=== PATIENT | male | born 1960 | race Caucasian/White ===

== ENCOUNTER 2018-04-05 13:21 | Emergency (ER) | payer OTHER ==
[~2018-04-05] VITALS: Ht 175.2 cm; Wt 77.1 kg
--- NOTE | ~2018-04-05 | EKG ---
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
[~2018-04-05 13:21] MED LIST: AMLODIPINE5 MG PO; ANTIVERT/2525 MG PO; CHOLESTEROL; MEDROL DOSEPAK4 MG PO; VICODIN ES 7501 TAB PO
[2018-04-05 14:35] LABS: BASO % 0.3 % (0.0-1.0); EOS % 0.3 % (1.0-4.0); HEMATOCRIT 40.9 % (42.0-52.0); HEMOGLOBIN 12.7 g/dl (14.0-18.0); LYMPH # 0.4 10*3/uL (1.3-4.4); MEAN CELL VOLUME 98.3 fl (80.0-94.0); MEAN CORPUSCULAR HGB 30.5 pg (27.0-31.0); MEAN CORPUSCULAR HGB CONC 31.1 g/dl (33.0-37.0); MEAN PLATELET VOLUME 9.5 fl (9.6-12.3); MONO # 0.6 10*3/uL (0.1-1.0); NEUT # 7.6 10*3/uL (2.3-7.9); NEUT % 87.2 % (47.0-73.0); PLATELET COUNT AUTOMATED 203 10*3/uL (130-400); RED BLOOD COUNT 4.16 10*6/uL (4.50-5.90); RED CELL DISTRI WIDTH 13.1 % (0-14.5); WHITE BLOOD COUNT 8.8 10*3/uL (4.8-10.8)
[2018-04-05 14:50] LABS: ALBUMIN 3.5 gm/dl (3.1-4.5); ALKALINE PHOSPHATASE 47 U/L (45-117); BUN 14 mg/dl (7-24); CHLORIDE 100 mmol/L (98-107); CREATININE 1.15 mg/dL (0.70-1.30); POTASSIUM 3.8 mmol/L (3.5-5.1); SGOT/AST 14 IU/L (3-35); SGPT/ALT 31 U/L (12-78); SODIUM 137 mmol/L (136-145); TOTAL PROTEIN 7.1 gm/dL (6.4-8.2)
[2018-04-05] MEDS ORDERED: VIBRAMYCIN100 MG PO (15:53)
== END 2018-04-05 15:57 | disposition home or self-care (01) ==
LOC: ED 13:21
PROVIDERS: Emergency Medicine
DX: J40 Bronchitis, not specified as acute or chronic (principal); R55 Syncope and collapse; F17.200 Nicotine dependence, unspecified, uncomplicated; Z88.0 Allergy status to penicillin; Z79.899 Other long term (current) drug therapy

== ENCOUNTER → 2019-04-01 | Outpatient (CLI) | payer OTHER ==
[~2019-04-01] MED LIST changes: +VIBRAMYCIN100 MG PO
[2019-04-01 10:26] LABS: BASO % 0.6 % (0.0-1.0); EOS # 0.1 10*3/uL (0.0-0.4); EOS % 1.8 % (1.0-4.0); HEMATOCRIT 44.3 % (42.0-52.0); HEMOGLOBIN 13.8 g/dl (14.0-18.0); LYMPH % 14.9 % (27.0-41.0); MEAN CELL VOLUME 97.8 fl (80.0-94.0); MEAN CORPUSCULAR HGB 30.5 pg (27.0-31.0); MEAN CORPUSCULAR HGB CONC 31.2 g/dl (33.0-37.0); MEAN PLATELET VOLUME 9.7 fl (9.6-12.3); MONO # 0.4 10*3/uL (0.1-1.0); MONO % 5.6 % (3.0-9.0); NEUT # 5.2 10*3/uL (2.3-7.9); PLATELET COUNT AUTOMATED 285 10*3/uL (130-400); RED BLOOD COUNT 4.53 10*6/uL (4.50-5.90); RED CELL DISTRI WIDTH 13.5 % (0-14.5); WHITE BLOOD COUNT 6.8 10*3/uL (4.8-10.8)
[2019-04-01 10:57] LABS: ALBUMIN 3.9 gm/dl (3.1-4.5); BUN 19 mg/dl (7-24); CHOLESTEROL 200 mg/dL (<200); CREATININE 1.25 mg/dL (0.70-1.30); SGOT/AST 27 IU/L (3-35); SGPT/ALT 40 U/L (12-78); T3 UPTAKE 31 % (31-39); THYROXINE (T4) TOTAL 9.1 ug/dl (4.5-12.1); TOTAL PROTEIN 7.3 gm/dL (6.4-8.2); TRIGLYCERIDES 122 mg/dl (<150); VLDL CHOLESTEROL 24 mg/dL (6-40)
[2019-04-01 11:03] LABS: ALKALINE PHOSPHATASE 43 U/L (45-117); CHLORIDE 106 mmol/L (98-107); HDL CHOLESTEROL 42 mg/dl (40-60); LDL CHOLESTEROL 134 mg/dL (9-159); POTASSIUM 3.9 mmol/L (3.5-5.1); SODIUM 137 mmol/L (136-145)
[2019-04-01 11:15] LABS: VITAMIN D, 25-HYDROXY 33.4 ng/mL (30-100)
== END | disposition home or self-care (01) ==
LOC: LAB 09:48
PROVIDERS: Internal Medicine
DX: Z12.5 Encounter for screening for malignant neoplasm of prostate (principal); I10 Essential (primary) hypertension; E78.2 Mixed hyperlipidemia; E03.9 Hypothyroidism, unspecified; D51.0 Vitamin B12 deficiency anemia due to intrinsic factor deficiency; E55.9 Vitamin D deficiency, unspecified; I34.1 Nonrheumatic mitral (valve) prolapse; R53.82 Chronic fatigue, unspecified

== ENCOUNTER 2019-07-04 10:58 | Emergency (ER) | payer OTHER ==
[~2019-07-04] VITALS: Ht 167.6 cm; Wt 81.6 kg
[2019-07-04 12:22] LABS: HEMATOCRIT 39.6 % (42.0-52.0); HEMOGLOBIN 12.5 g/dl (14.0-18.0); MEAN CELL VOLUME 95.4 fl (80.0-94.0); MEAN CORPUSCULAR HGB 30.1 pg (27.0-31.0); MEAN CORPUSCULAR HGB CONC 31.6 g/dl (33.0-37.0); MEAN PLATELET VOLUME 9.5 fl (9.6-12.3); PLATELET COUNT AUTOMATED 167 10*3/uL (130-400); RED BLOOD COUNT 4.15 10*6/uL (4.50-5.90); RED CELL DISTRI WIDTH 14.1 % (0-14.5)
[2019-07-04 12:30] LABS: ACT PARTIAL THROMBO TIME 28.8 SECONDS (20.0-32.1)
[2019-07-04 12:37] LABS: ALBUMIN 3.4 gm/dl (3.1-4.5); ALKALINE PHOSPHATASE 41 U/L (45-117); BUN 17 mg/dl (7-24); CHLORIDE 104 mmol/L (98-107); CREATININE 1.41 mg/dL (0.70-1.30); POTASSIUM 3.7 mmol/L (3.5-5.1); SGOT/AST 27 IU/L (3-35); SGPT/ALT 34 U/L (12-78); SODIUM 136 mmol/L (136-145); TOTAL PROTEIN 6.9 gm/dL (6.4-8.2)
[2019-07-04 12:39] LABS: TROPONIN I < 0.015 ng/ml (<0.045)
[2019-07-04 12:40] LABS: ATYPICAL LYMPHS 3 % (0-0); PLATELET SUFFICIENCY NORMAL (NORMAL); TOTAL CELLS COUNTED 100 #CELLS
[2019-07-04 12:50] LABS: BACTERIA 2+; BILIRUBIN 1+ (NEGATIVE); BLOOD 1+ (NEGATIVE); CLARITY SL CLOUDY (CLEAR); COLOR YELLOW (YELLOW); EPITHELIAL CELLS 0-2; GLUCOSE NEGATIVE (NEGATIVE); KETONE NEGATIVE (NEGATIVE); LEUKO ESTERASE NEGATIVE (NEGATIVE); MUCOUS 1+; NITRITE NEGATIVE (NEGATIVE); SPECIFIC GRAVITY 1.015 (1.005-1.030); UROBILINOGEN 0.2 E.U./dl (0.2-1.0); WBC 0-2 wbc/hpf (0-5)
[2019-07-04] MEDS ORDERED: ZOFRAN4 MG PO (14:45)
== END 2019-07-04 14:58 | disposition home or self-care (01) ==
LOC: ED 10:58
PROVIDERS: Emergency Medicine
DX: B34.9 Viral infection, unspecified (principal); R42 Dizziness and giddiness; R07.81 Pleurodynia; R10.9 Unspecified abdominal pain; R51 Headache; R11.0 Nausea; R79.1 Abnormal coagulation profile; I10 Essential (primary) hypertension; Z88.0 Allergy status to penicillin; Z79.899 Other long term (current) drug therapy

== ENCOUNTER 2019-07-10 15:22 | Inpatient (IN) | payer OTHER ==
[~2019-07-10] VITALS: Ht 170.1 cm; Wt 81.2 kg
[~2019-07-10 15:22] MED LIST changes: +ZOFRAN4 MG PO
[2019-07-10 15:29] VITALS: BP 81/51
[2019-07-10 16:04] LABS: HEMATOCRIT 34.1 % (42.0-52.0); HEMOGLOBIN 10.9 g/dl (14.0-18.0); MEAN CELL VOLUME 92.2 fl (80.0-94.0); MEAN CORPUSCULAR HGB 29.5 pg (27.0-31.0); PLATELET COUNT AUTOMATED 253 10*3/uL (130-400); RED CELL DISTRI WIDTH 14.6 % (0-14.5); WHITE BLOOD COUNT 5.3 10*3/uL (4.8-10.8)
[2019-07-10 16:19] LABS: ACT PARTIAL THROMBO TIME 22.1 SECONDS (20.0-32.1)
[2019-07-10 16:23] LABS: ALBUMIN 3.2 gm/dl (3.1-4.5); ALKALINE PHOSPHATASE 77 U/L (45-117); BUN 20 mg/dl (7-24); CHLORIDE 99 mmol/L (98-107); CREATININE 1.45 mg/dL (0.70-1.30); LIPASE 155 U/L (73-393); POTASSIUM 3.9 mmol/L (3.5-5.1); SGOT/AST 48 IU/L (3-35); SGPT/ALT 73 U/L (12-78); SODIUM 133 mmol/L (136-145); TOTAL PROTEIN 6.8 gm/dL (6.4-8.2)
[2019-07-10 16:26] LABS: ATYPICAL LYMPHS 5 % (0-0); PLATELET SUFFICIENCY NORMAL (NORMAL); TOTAL CELLS COUNTED 100 #CELLS
[2019-07-10 16:27] LABS: BURR CELLS FEW; TROPONIN I < 0.015 ng/ml (<0.045)
[2019-07-10 17:30] VITALS: BP 105/57
[2019-07-10 18:01] VITALS: BP 105/60
[2019-07-10 18:47] VITALS: BP 107/80
[2019-07-10] MEDS ORDERED: ZESTORETIC 10-1 EACH PO (18:51)
[2019-07-10] MEDS ORDERED: PRAVASTATIN SOD10 MG PO (18:52)
[2019-07-10 20:00] VITALS: BP 107/58
[2019-07-11] VITALS: BP 107/62
[2019-07-11 03:24] LABS: BILIRUBIN NEGATIVE (NEGATIVE); BLOOD NEGATIVE (NEGATIVE); CLARITY CLEAR (CLEAR); COLOR YELLOW (YELLOW); GLUCOSE NEGATIVE (NEGATIVE); KETONE NEGATIVE (NEGATIVE); PH 6.5 (5.0-9.0); SPECIFIC GRAVITY 1.015 (1.005-1.030)
[2019-07-11 03:25] LABS: LEUKO ESTERASE NEGATIVE (NEGATIVE); NITRITE NEGATIVE (NEGATIVE); UROBILINOGEN 0.2 E.U./dl (0.2-1.0)
[2019-07-11 03:38] LABS: BACTERIA TRACE; MUCOUS TRACE; RBC 0-2 rbc/hpf (0-2)
[2019-07-11 06:16] LABS: HEMATOCRIT 28.9 % (42.0-52.0); HEMOGLOBIN 9.1 g/dl (14.0-18.0); MEAN CELL VOLUME 93.8 fl (80.0-94.0); MEAN CORPUSCULAR HGB 29.5 pg (27.0-31.0); MEAN CORPUSCULAR HGB CONC 31.5 g/dl (33.0-37.0); MEAN PLATELET VOLUME 9.6 fl (9.6-12.3); PLATELET COUNT AUTOMATED 237 10*3/uL (130-400); RED BLOOD COUNT 3.08 10*6/uL (4.50-5.90); RED CELL DISTRI WIDTH 14.8 % (0-14.5); WHITE BLOOD COUNT 5.1 10*3/uL (4.8-10.8)
[2019-07-11 06:33] LABS: ALBUMIN 2.7 gm/dl (3.1-4.5); ALKALINE PHOSPHATASE 85 U/L (45-117); BUN 20 mg/dl (7-24); CHLORIDE 104 mmol/L (98-107); CHOLESTEROL 109 mg/dL (<200); CREATININE 1.39 mg/dL (0.70-1.30); HDL CHOLESTEROL 22 mg/dl (40-60); IRON 34 ug/dL (65-175); LDL CHOLESTEROL 63 mg/dL (9-159); PHOSPHOROUS 3.5 mg/dL (2.5-4.9); POTASSIUM 3.7 mmol/L (3.5-5.1); SGOT/AST 51 IU/L (3-35); SGPT/ALT 76 U/L (12-78); SODIUM 136 mmol/L (136-145); TOTAL IRON BINDING CAPACITY 173 ug/dl (250-450); TOTAL PROTEIN 5.7 gm/dL (6.4-8.2); TRIGLYCERIDES 118 mg/dl (<150); VLDL CHOLESTEROL 24 mg/dL (6-40)
[2019-07-11 06:53] LABS: ATYPICAL LYMPHS 14 % (0-0); BASOPHILS 1 % (0-1); PLATELET SUFFICIENCY NORMAL (NORMAL); POLYCHROMASIA SLIGHT; TOTAL CELLS COUNTED 100 #CELLS
[2019-07-11 06:54] LABS: OVALOCYTES FEW
[2019-07-11 08:08] LABS: FERRITIN 584.4 ng/mL (22.0-322.0); VITAMIN D, 25-HYDROXY 28.2 ng/mL (30-100)
[2019-07-11 12:00] VITALS: BP 97/81
[2019-07-11 16:00] VITALS: BP 128/83
[2019-07-11 20:00] VITALS: BP 119/77
[2019-07-12] VITALS: BP 128/78
[2019-07-12 08:00] VITALS: BP 126/78
[2019-07-12] MEDS ORDERED: TAMIFLU 75MG CA75 MG PO (08:44)
== END 2019-07-12 10:02 | disposition home or self-care (01) | DRG 640 ==
LOC: ED 15:22 → EDHOLD 17:44 → 4E 17:44
PROVIDERS: Internal Medicine; Physician Assistant; ADMIT Internal Medicine
DX: E86.0 Dehydration (principal); N17.0 Acute kidney failure with tubular necrosis; E43 Unspecified severe protein-calorie malnutrition; B34.9 Viral infection, unspecified; M79.604 Pain in right leg; M79.605 Pain in left leg; I95.9 Hypotension, unspecified; I10 Essential (primary) hypertension; E78.00 Pure hypercholesterolemia, unspecified; E55.9 Vitamin D deficiency, unspecified; Z68.28 Body mass index [BMI] 28.0-28.9, adult; Z88.0 Allergy status to penicillin; Z79.899 Other long term (current) drug therapy

== ENCOUNTER 2019-07-16 02:17 | Inpatient (IN) | payer OTHER ==
[~2019-07-16] VITALS: Ht 182.9 cm; Wt 81.3 kg
[2019-07-16] VITALS (8 sets, daily range): BP systolic 114–150; BP diastolic 68–84
[~2019-07-16 02:17] MED LIST changes: +PRAVASTATIN SOD10 MG PO; +TAMIFLU 75MG CA75 MG PO; +ZESTORETIC 10-1 EACH PO
[2019-07-16 03:38] LABS: HEMATOCRIT 31.7 % (42.0-52.0); HEMOGLOBIN 9.9 g/dl (14.0-18.0); MEAN CELL VOLUME 93.5 fl (80.0-94.0); MEAN CORPUSCULAR HGB 29.2 pg (27.0-31.0); MEAN CORPUSCULAR HGB CONC 31.2 g/dl (33.0-37.0); MEAN PLATELET VOLUME 8.9 fl (9.6-12.3); PLATELET COUNT AUTOMATED 271 10*3/uL (130-400); RED BLOOD COUNT 3.39 10*6/uL (4.50-5.90); RED CELL DISTRI WIDTH 15.3 % (0-14.5)
[2019-07-16 03:55] LABS: ALBUMIN 2.9 gm/dl (3.1-4.5); ALKALINE PHOSPHATASE 177 U/L (45-117); BUN 12 mg/dl (7-24); CHLORIDE 102 mmol/L (98-107); CREATININE 1.24 mg/dL (0.70-1.30); LIPASE 107 U/L (73-393); POTASSIUM 3.5 mmol/L (3.5-5.1); SGOT/AST 149 IU/L (3-35); SGPT/ALT 249 U/L (12-78); SODIUM 139 mmol/L (136-145); TOTAL PROTEIN 6.2 gm/dL (6.4-8.2)
[2019-07-16 03:58] LABS: ATYPICAL LYMPHS 31 % (0-0); MICROCYTOSIS SLIGHT; TOTAL CELLS COUNTED 100 #CELLS
[2019-07-16 03:59] LABS: PLATELET SUFFICIENCY NORMAL (NORMAL)
--- NOTE | 2019-07-16 05:32 | NUR ---
PT STATES HIS PAIN HAS DECREASED AFTER GIVEN MEDICATION. RESTING IN BED. IN NO ACUTE DISTRESS
[2019-07-16 06:28] LABS: BILIRUBIN NEGATIVE (NEGATIVE); BLOOD NEGATIVE (NEGATIVE); CLARITY SL CLOUDY (CLEAR); COLOR STRAW (YELLOW); GLUCOSE NEGATIVE (NEGATIVE); KETONE NEGATIVE (NEGATIVE); LEUKO ESTERASE NEGATIVE (NEGATIVE); NITRITE NEGATIVE (NEGATIVE); SPECIFIC GRAVITY 1.015 (1.005-1.030); UROBILINOGEN 0.2 E.U./dl (0.2-1.0)
[2019-07-16 06:30] LABS: EPITHELIAL CELLS 0-2
--- NOTE | 2019-07-16 08:30 | NUR ---
Pt states his pain is doing ok at this time and waiting on room upstairs.
--- NOTE | 2019-07-16 09:01 | NUR ---
Called report and nurse stated she needed some time prior to admisson.
[2019-07-16] MEDS ORDERED: ZESTORETIC 10-1 EACH PO (09:38)
--- NOTE | 2019-07-16 10:11 | NUR ---
Time: 914 A 59 year old MALE admitted to 5E under services of NUNU BURGOS DO. Pt. arrived via stretcher from ER. Chief complaint: LEG PAIN X 6 MONTHS. ALETA GREY
--- NOTE | 2019-07-16 19:15 | NUR ---
PT RESTING IN REJI. NO COMPLAINTS AT THIS TIME. ASSESSMENT COMPLETE. RESPIRATIONS EASY AND REGULAR. CALL LIGHT WITHIN REACH. WILL CONTINUE TO MONITOR.
--- NOTE | 2019-07-16 23:12 | NUR ---
PT REQUESTING SOMETHING TO HELP HIM SLEEP. MEDICATED WITH PRN RESTORIL ORDERED. WILL CHECK EFFECTIVENESS. CALL LIGHT WITHIN REACH.
[2019-07-16 23:25] LABS: URINE AMPHETAMINES < 1000 (1000ng/ml); URINE BARBITURATES < 200 (200ng/ml); URINE BENZODIAZEPINES < 200 (200ng/ml); URINE CANNABINOIDS (THC) < 50 (50ng/ml); URINE COCAINE < 300 (300ng/ml); URINE METHADONE < 300 (300ng/ml); URINE OPIATES > 300 (300ng/ml)
[2019-07-16 23:34] LABS: URINE PHENCYCLIDINE < 25 (25ng/ml)
--- NOTE | 2019-07-16 23:56 | NUR ---
INFORMED PT REQUESTING SOMETHING FOR CALF PAIN. STATES "I WILL PUT SOMETHING IN."
[2019-07-17] VITALS: BP 129/71
--- NOTE | 2019-07-17 00:03 | NUR ---
ONE TIME TORADOL IV GIVEN ORDERED FOR CALF PAIN RATED A 9/10. WILL CHECK EFFECTIVENESS. CALL LIGHT WITHIN REACH.
--- NOTE | 2019-07-17 00:30 | NUR ---
PT STATES PAIN MED HELPED A LITTLE. WILL CONTINUE TO MONITOR.
--- NOTE | 2019-07-17 00:45 | NUR ---
24 HR chart check completed.
--- NOTE | 2019-07-17 02:32 | NUR ---
PT STILL CO CALF PAIN RATED A 10/10 NOTIFIED . NEW ORDERS RECEIVED. MEDICATED PT WITH ONE TIME NORCO ORDERED. WILL CHECK EFFECTIVENESS. CALL LIGHT WITHIN REACH. WILL CONTINUE TO MONITOR.
--- NOTE | 2019-07-17 03:15 | NUR ---
PT SLEEPING. PAIN MED SEEMS TO BE EFFECTIVE. CALL LIGHT WITHIN REACH. WILL CONTINUE TO MONITOR.
[2019-07-17 06:16] LABS: HEMATOCRIT 32.1 % (42.0-52.0); HEMOGLOBIN 10.1 g/dl (14.0-18.0); MEAN CELL VOLUME 93.3 fl (80.0-94.0); MEAN CORPUSCULAR HGB 29.4 pg (27.0-31.0); MEAN CORPUSCULAR HGB CONC 31.5 g/dl (33.0-37.0); MEAN PLATELET VOLUME 9.2 fl (9.6-12.3); PLATELET COUNT AUTOMATED 251 10*3/uL (130-400); RED BLOOD COUNT 3.44 10*6/uL (4.50-5.90); RED CELL DISTRI WIDTH 15.4 % (0-14.5); WHITE BLOOD COUNT 7.9 10*3/uL (4.8-10.8)
[2019-07-17 06:31] LABS: ALBUMIN 2.8 gm/dl (3.1-4.5); ALKALINE PHOSPHATASE 235 U/L (45-117); BUN 17 mg/dl (7-24); CHLORIDE 97 mmol/L (98-107); CREATININE 1.37 mg/dL (0.70-1.30); PHOSPHOROUS 4.6 mg/dL (2.5-4.9); POTASSIUM 4.1 mmol/L (3.5-5.1); SGOT/AST 142 IU/L (3-35); SGPT/ALT 265 U/L (12-78); SODIUM 135 mmol/L (136-145); TOTAL PROTEIN 6.3 gm/dL (6.4-8.2)
[2019-07-17 06:43] LABS: ATYPICAL LYMPHS 18 % (0-0); TOTAL CELLS COUNTED 100 #CELLS
[2019-07-17 06:44] LABS: OVALOCYTES FEW; PLATELET SUFFICIENCY NORMAL (NORMAL); POLYCHROMASIA SLIGHT
--- NOTE | 2019-07-17 07:30 | NUR ---
DR JAVIER HERE TO ASSESS PATIENT AND DISCUSS PLAN OF CARE
--- NOTE | 2019-07-17 07:59 | NUR ---
24 HR chart check completed.
[2019-07-17 08:00] VITALS: BP 118/70
--- NOTE | 2019-07-17 09:15 | NUR ---
RESTING IN BED WITH NO DISTRESS NOTED. RESPIRATIONS EASY. LUNGS DIMINISHED, CLEAR. PULSE OX 100% RA. TEDS/SCDS AT BEDSIDE, PATIENT DECLINING TO WEAR. CALL LIGHT WITHIN REACH. NO VOICED COMPLAINTS
[2019-07-17] MEDS ORDERED: ZESTORETIC 10-1 EACH PO (09:21)
[2019-07-17] MEDS ORDERED: VITAMIN D350 MCG PO (09:23)
--- NOTE | 2019-07-17 09:30 | NUR ---
MEDS REVIEWED PER DR COLLIER REQUEST AND UPDATED ON EMAR
[2019-07-17 12:00] VITALS: BP 115/56
[2019-07-17 16:00] VITALS: BP 126/73
--- NOTE | 2019-07-17 16:00 | NUR ---
REMAINS IN RECLINER, VISITING WITH FRIENDS/FAMILY. NO ACUTE DISTRESS NOTED. RESPIRATIONS EASY. CALL LIGHT WITHIN REACH. NO VOICED COMPLAINTS
[2019-07-17 17:09] LABS: HEPATITIS B SURFACE AG Negative (Negative); HEPATITIS C VIRUS ANTIBODY <0.1 s/co (0.0-0.9)
--- NOTE | 2019-07-17 19:38 | NUR ---
24 HR chart check completed.
[2019-07-17 20:00] VITALS: BP 114/69
--- NOTE | 2019-07-17 23:00 | NUR ---
ASSUMED CARE FOR THIS PT AT THIS TIME. PT SITTING UP IN RECLINER CHAIR. NO C/O VOICED AT PRESENT TIME. CALL LIGHT IN REACH.
--- NOTE | 2019-07-17 23:33 | NUR ---
PT MEDICATED W/RESTORIL PER PT REQUEST TO HELP PROMOTE SLEEP.
[2019-07-18] VITALS: BP 121/71
[2019-07-18 06:31] LABS: HEMOGLOBIN 10.3 g/dl (14.0-18.0); MEAN CELL VOLUME 93.2 fl (80.0-94.0); MEAN CORPUSCULAR HGB 29.1 pg (27.0-31.0); MEAN CORPUSCULAR HGB CONC 31.2 g/dl (33.0-37.0); MEAN PLATELET VOLUME 9.3 fl (9.6-12.3); PLATELET COUNT AUTOMATED 274 10*3/uL (130-400); RED BLOOD COUNT 3.54 10*6/uL (4.50-5.90); RED CELL DISTRI WIDTH 15.4 % (0-14.5); WHITE BLOOD COUNT 7.7 10*3/uL (4.8-10.8)
[2019-07-18 06:52] LABS: ALBUMIN 2.8 gm/dl (3.1-4.5); ALKALINE PHOSPHATASE 284 U/L (45-117); BUN 18 mg/dl (7-24); CHLORIDE 100 mmol/L (98-107); CREATININE 1.18 mg/dL (0.70-1.30); POTASSIUM 4.2 mmol/L (3.5-5.1); SGOT/AST 154 IU/L (3-35); SGPT/ALT 311 U/L (12-78); SODIUM 134 mmol/L (136-145); TOTAL PROTEIN 6.6 gm/dL (6.4-8.2)
[2019-07-18 06:58] LABS: ATYPICAL LYMPHS 18 % (0-0); OVALOCYTES FEW; PLASMA CELL 1 % (0-0); PLATELET SUFFICIENCY NORMAL (NORMAL); POLYCHROMASIA SLIGHT; TOTAL CELLS COUNTED 100 #CELLS
--- NOTE | 2019-07-18 07:38 | NUR ---
DR. CHAMBERS CALLED FOR PT C/O OF BILATERAL LOWER LEG AND FEET PAIN. ORDERS TAKEN AND REVIEWED.
--- NOTE | 2019-07-18 07:42 | NUR ---
VITAL SIGNS STABLE. A&Ox3. [place]. SKIN PINK, WARM, DRY, INTACT. PATIENT STATES "MY PAIN IS A 6, IN BOTH OF MY FEET AND ANKLES." PAIN MEDICINE ORDERED. SKIN TURGOR NON-TENTED. HR 80 REGULAR. CAPILLARY REFILL <3 SECONDS. HEART SOUNDS NORMAL. SPO2 100% R/A. LUNGS CLEAR THROUGHOUT. ABDOMEN SOFT, NON-TENTED, NON-DISTENDED. BOWEL SOUNDS ACTIVE X4. IV SITE INTACT WITH HEPLOCK, NO S/S OF INFECTION. PATIENT IS PLEASANT AND COOPERATIVE. PATIENT IS SITTING UP IN CHAIR WATCHING TV. WILL CONTIUNE TO ASSESS. RYAN RICHARDSON [facility].
[2019-07-18 08:00] VITALS: BP 128/80
--- NOTE | 2019-07-18 08:02 | NUR ---
PATIENT STATES "MY PAINS A 6/10 IN BOTH OF MY FEET AND ANKLES". IVP MORPHINE 2MG BY ROSA VICENTE. WILL CONTIUNE TO MONITOR. [facility]
--- NOTE | 2019-07-18 09:11 | NUR ---
MORPHINE EFFECTIVE. PATIENT STATED PAIN 0/10 ON PAIN SCALE. PATIENT RESTING IN CHAIR WATCHING TV. WILL CONTINUE TO MONITOR. RYAN SKAGGS
--- NOTE | 2019-07-18 09:49 | NUR ---
PATIENTS SISTER IS IN TO VISIT. SITTING UP IN CHAIR WATCHING TV. [facility]
--- NOTE | 2019-07-18 10:30 | NUR ---
PATIENT LEFT FOR HIS ULTRASOUND VIA WHEELCHAIR. CONDITION STABLE. RYAN SKAGGS.
--- NOTE | 2019-07-18 11:20 | NUR ---
PATIENT IS BACK FROM ULTRASOUND VIA WHEELCHAIR. CONDITION STABLE. RYAN [facility].
--- NOTE | 2019-07-18 13:43 | NUR ---
Discharge instructions reviewed with patient/family. Patient receptive and verbalizes understanding. Follow-up care arranged. Written instructions given to patient/family. HEPLOCK REMOVED 2X2 APPLIED. AMBULATORY OFF THE FLOOR FOR DISCHARGE. SIENNA BULLOCK
--- NOTE | 2019-07-18 13:49 | NUR ---
Avionic Technician in to talk to patient. Patient states lives at HOME with SISTER. There are 2 steps in the home. Physician: MICHELLE [facility]: [facility] Home health services: NONE Patient's level of ADLs: INDEPENDENT Patient has working utilities: YES DME: NONE Follow-up physician's appointment after d/c: WILL BE MADE BY HOSPITALIST NURSE DIRECTOR ON DISCHARGE Does patient want to access PORTAL?: NO Discharge plan PT LIVES AT HOME WITH SISTER AND IS INDEPENDENT IN HIS CARE. PT AND SISTER DENY PT WILL HAVE NEEDS ON DISCHARGE. PLANS TO RETURN HOME WHEN MEDICALLY STABLE. WILL CONTINUE TO FOLLOW. PT STATES HE WILL HAVE A RIDE HOME ON DISCHARGE.. ADELA WHITE
== END 2019-07-18 13:43 | disposition home or self-care (01) | DRG 555 ==
LOC: ED 02:17 → EDHOLD 07:59 → 5E 07:59 → EDHOLD 08:18 → 5E 08:47
PROVIDERS: Emergency Medicine Emergency Medical Services; Family Medicine; Hospitalist; ADMIT Internal Medicine
DX: M79.604 Pain in right leg (principal); E43 Unspecified severe protein-calorie malnutrition; E87.1 Hypo-osmolality and hyponatremia; R74.0 Nonspecific elevation of levels of transaminase and lactic acid dehydrogenase [LDH]; R16.1 Splenomegaly, not elsewhere classified; E83.41 Hypermagnesemia; N18.3 Chronic kidney disease, stage 3 (moderate); E78.00 Pure hypercholesterolemia, unspecified; E87.8 Other disorders of electrolyte and fluid balance, not elsewhere classified; K57.90 Diverticulosis of intestine, part unspecified, without perforation or abscess without bleeding; D63.8 Anemia in other chronic diseases classified elsewhere; I12.9 Hypertensive chronic kidney disease with stage 1 through stage 4 chronic kidney disease, or unspecified chronic kidney disease; M79.605 Pain in left leg; Z68.24 Body mass index [BMI] 24.0-24.9, adult; Z88.0 Allergy status to penicillin; Z79.899 Other long term (current) drug therapy; Z82.3 Family history of stroke; T46.6X5A Adverse effect of antihyperlipidemic and antiarteriosclerotic drugs, initial encounter; Y92.89 Other specified places as the place of occurrence of the external cause

== ENCOUNTER → 2020-06-26 | Outpatient (CLI) | payer OTHER ==
[~2020-06-26] MED LIST changes: +VITAMIN D350 MCG PO
[2020-06-26 10:52] LABS: BASO % 0.4 % (0.0-1.0); EOS # 0.1 10*3/uL (0.0-0.4); EOS % 2.3 % (1.0-4.0); HEMATOCRIT 46.2 % (42.0-52.0); LYMPH # 1.3 10*3/uL (1.3-4.4); LYMPH % 26.7 % (27.0-41.0); MEAN CELL VOLUME 95.3 fl (80.0-94.0); MEAN CORPUSCULAR HGB 28.9 pg (27.0-31.0); MEAN CORPUSCULAR HGB CONC 30.3 g/dl (33.0-37.0); MEAN PLATELET VOLUME 9.1 fl (9.6-12.3); MONO # 0.3 10*3/uL (0.1-1.0); MONO % 5.5 % (3.0-9.0); NEUT # 3.1 10*3/uL (2.3-7.9); NEUT % 64.7 % (47.0-73.0); PLATELET COUNT AUTOMATED 213 10*3/uL (130-400); RED BLOOD COUNT 4.85 10*6/uL (4.50-5.90); RED CELL DISTRI WIDTH 13.5 % (0-14.5); WHITE BLOOD COUNT 4.8 10*3/uL (4.8-10.8)
[2020-06-26 11:15] LABS: ALBUMIN 3.8 gm/dl (3.1-4.5); ALKALINE PHOSPHATASE 49 U/L (45-117); BUN 15 mg/dl (7-24); CHLORIDE 108 mmol/L (98-107); CHOLESTEROL 203 mg/dL (<200); CREATININE 1.28 mg/dL (0.70-1.30); HDL CHOLESTEROL 39 mg/dl (40-60); LDL CHOLESTEROL 133 mg/dL (9-159); POTASSIUM 4.1 mmol/L (3.5-5.1); SGOT/AST 21 IU/L (3-35); SGPT/ALT 29 U/L (12-78); SODIUM 142 mmol/L (136-145); T3 UPTAKE 32 % (31-39); THYROXINE (T4) TOTAL 8.5 ug/dl (4.5-12.1); TOTAL PROTEIN 6.8 gm/dL (6.4-8.2); TRIGLYCERIDES 153 mg/dl (<150); VLDL CHOLESTEROL 31 mg/dL (6-40)
[2020-06-26 12:08] LABS: VITAMIN D, 25-HYDROXY 52.9 ng/mL (30-100)
== END | disposition home or self-care (01) ==
LOC: LAB 10:24
PROVIDERS: ATTEND Internal Medicine
DX: Z12.5 Encounter for screening for malignant neoplasm of prostate (principal); E78.2 Mixed hyperlipidemia; E03.9 Hypothyroidism, unspecified; D51.0 Vitamin B12 deficiency anemia due to intrinsic factor deficiency; E55.9 Vitamin D deficiency, unspecified; M17.9 Osteoarthritis of knee, unspecified; I10 Essential (primary) hypertension

== ENCOUNTER 2021-02-17 15:05 | Emergency (ER) | payer OTHER | END 2021-02-17 16:05 | disposition home or self-care (01) | LOC: ED 15:05 | DX: I16.0 Hypertensive urgency (principal); Z88.0 Allergy status to penicillin; Z79.899 Other long term (current) drug therapy ==

== ENCOUNTER 2022-07-12 15:50 | Emergency (ER) | payer OTHER ==
[~2022-07-12] VITALS: Ht 172.7 cm; Wt 81.6 kg
[2022-07-12 16:33] LABS: BASO % 0.6 % (0.0-1.0); EOS % 0.8 % (1.0-4.0); HEMATOCRIT 44.6 % (42.0-52.0); LYMPH # 0.9 10*3/uL (1.3-4.4); LYMPH % 16.4 % (27.0-41.0); MEAN CELL VOLUME 92.9 fl (80.0-94.0); MEAN CORPUSCULAR HGB 29.8 pg (27.0-31.0); MEAN CORPUSCULAR HGB CONC 32.1 g/dl (33.0-37.0); MONO # 0.3 10*3/uL (0.1-1.0); MONO % 4.7 % (3.0-9.0); NEUT # 4.1 10*3/uL (2.3-7.9); NEUT % 77.1 % (47.0-73.0); PLATELET COUNT AUTOMATED 204 10*3/uL (130-400); RED CELL DISTRI WIDTH 13.6 % (0-14.5); WHITE BLOOD COUNT 5.3 10*3/uL (4.8-10.8)
[2022-07-12 16:54] LABS: POTASSIUM 3.8 mmol/L (3.4-5.1); TOTAL PROTEIN 6.7 gm/dL (6.0-8.0)
[2022-07-12] MEDS ORDERED: CETIRIZINE10 MG PO (16:57)
== END 2022-07-12 17:01 | disposition home or self-care (01) ==
LOC: ED 15:50
PROVIDERS: Physician Assistant
DX: R42 Dizziness and giddiness (principal); H83.8X3 Other specified diseases of inner ear, bilateral; Z88.0 Allergy status to penicillin

== ENCOUNTER 2024-08-10 12:23 | Emergency (ER) | payer OTHER ==
[~2024-08-10] VITALS: Ht 172.7 cm; Wt 81.6 kg
[~2024-08-10 12:23] MED LIST changes: +CETIRIZINE10 MG PO
[2024-08-10] MEDS ORDERED: MEDROL DOSEPAK4 MG PO (15:12)
== END 2024-08-10 15:16 | disposition home or self-care (01) ==
LOC: ED 12:23
DX: R05.9 Cough, unspecified (principal); Z20.822 Contact with and (suspected) exposure to COVID-19; B97.4 Respiratory syncytial virus as the cause of diseases classified elsewhere; I10 Essential (primary) hypertension; Z88.0 Allergy status to penicillin

== ENCOUNTER 2025-01-05 15:11 | Emergency (ER) | payer OTHER ==
[~2025-01-05] VITALS: Wt 83.9 kg
[2025-01-05] MEDS ORDERED: SODIUM CHLORIDE 0.9% 100 ML BAG IV ONE (17:30)
[2025-01-05] MEDS ORDERED: IOHEXOL 350 MG/ML 100 ML VIAL IV ONE (17:30)
[2025-01-05 18:16] LABS: BILIRUBIN Negative (Negative); BLOOD Negative (Negative); CLARITY Clear (Clear); COLOR Yellow (Yellow); KETONE Negative (Negative); LEUKO ESTERASE Negative (Negative); NITRITE Negative (Negative); PH 5.5 (4.5-8.0); SPECIFIC GRAVITY 1.015 (1.001-1.030); UROBILINOGEN 0.2 E.U./dl (0.0-1.0)
[2025-01-05 18:23] LABS: URINE AMPHETAMINES Negative (1000ng/ml); URINE BARBITURATES Negative (200ng/ml); URINE BENZODIAZEPINES Negative (200ng/ml); URINE CANNABINOIDS (THC) Negative (50ng/ml); URINE COCAINE Negative (300ng/ml); URINE METHADONE Negative (300ng/ml); URINE OPIATES Negative (300ng/ml); URINE PHENCYCLIDINE Negative (25ng/ml)
[2025-01-05 18:25] LABS: BASO # 0.0 10*3/uL (0.0-0.1); BASO % 0.3 % (0.0-1.0); EOS # 0.0 10*3/uL (0.0-0.4); EOS % 0.3 % (1.0-4.0); MEAN CELL VOLUME 94.1 fl (80.0-94.0); MEAN CORPUSCULAR HGB 29.8 pg (27.0-31.0); MEAN PLATELET VOLUME 9.0 fl (9.6-12.3); MONO # 0.3 10*3/uL (0.1-1.0); MONO % 3.7 % (3.0-9.0); NEUT # 7.0 10*3/uL (2.3-7.9); NEUT % 88.1 % (47.0-73.0); NUCLEATED RED BLOOD CELL 0.0 % (0.0-0.0); NUCLEATED RED BLOOD CELL 0.0 10*3/uL (0.0-0.0); PLATELET COUNT AUTOMATED 199 10*3/uL (130-400); RED CELL DISTRI WIDTH 14.2 % (0-14.5)
[2025-01-05 18:36] LABS: ACT PARTIAL THROMBO TIME 26.2 SECONDS (20.0-32.1)
[2025-01-05 18:58] LABS: BUN 17 mg/dl (9-23); ETHYL ALCOHOL < 3.0 mg/dl (<3); SGPT/ALT 23 U/L (5-49)
== END 2025-01-05 20:26 | disposition short-term general hospital (02) ==
LOC: ED 15:11
PROVIDERS: Internal Medicine
DX: S12.100A Unspecified displaced fracture of second cervical vertebra, initial encounter for closed fracture (principal); Z88.0 Allergy status to penicillin; Z79.899 Other long term (current) drug therapy; V57.5XXA Driver of pick-up truck or van injured in collision with fixed or stationary object in traffic accident, initial encounter; Y93.I9 Activity, other involving external motion; Y92.488 Other paved roadways as the place of occurrence of the external cause; Y99.8 Other external cause status

== ENCOUNTER 2025-05-15 12:28 | Emergency (ER) | payer OTHER ==
[~2025-05-15] VITALS: Ht 177.8 cm; Wt 87.1 kg
[2025-05-15] MEDS ORDERED: SODIUM CHLORIDE 0.9% 1,000 ML IV ONE (13:10)
[2025-05-15 13:42] LABS: BASO # 0.0 10*3/uL (0.0-0.1); BASO % 0.3 % (0.0-1.0); EOS # 0.0 10*3/uL (0.0-0.4); EOS % 0.0 % (1.0-4.0); MEAN CELL VOLUME 95.6 fl (80.0-94.0); MEAN CORPUSCULAR HGB 29.9 pg (27.0-31.0); MEAN PLATELET VOLUME 9.0 fl (9.6-12.3); MONO # 0.2 10*3/uL (0.1-1.0); MONO % 5.0 % (3.0-9.0); NEUT # 3.3 10*3/uL (2.3-7.9); NEUT % 86.9 % (47.0-73.0); NUCLEATED RED BLOOD CELL 0.0 % (0.0-0.0); NUCLEATED RED BLOOD CELL 0.0 10*3/uL (0.0-0.0); PLATELET COUNT AUTOMATED 148 10*3/uL (130-400); RED CELL DISTRI WIDTH 13.9 % (0-14.5)
[2025-05-15 14:02] LABS: BUN 19.0 mg/dl (9-23)
[2025-05-15 14:19] LABS: BILIRUBIN Negative (Negative); BLOOD Negative (Negative); CLARITY Clear (Clear); COLOR Yellow (Yellow); KETONE Negative (Negative); LEUKO ESTERASE Trace (Negative); NITRITE Negative (Negative); PH 5.5 (4.5-8.0); SPECIFIC GRAVITY 1.020 (1.001-1.030); UROBILINOGEN 0.2 E.U./dl (0.0-1.0)
[2025-05-15 14:31] LABS: BACTERIA 2+; COARSE GRANULAR CAST 0-2; HYALINE CAST 16-20; MUCOUS 2+; RBC 0-2 rbc/hpf (0-2)
== END 2025-05-15 17:17 | disposition home or self-care (01) ==
LOC: ED 12:28
PROVIDERS: Nurse Practitioner Family
DX: I95.1 Orthostatic hypotension (principal); E86.0 Dehydration; I10 Essential (primary) hypertension; Z88.0 Allergy status to penicillin; Z20.822 Contact with and (suspected) exposure to COVID-19; Z79.899 Other long term (current) drug therapy

== ENCOUNTER → 2025-05-23 | Outpatient (CLI) | payer OTHER | END | disposition home or self-care (01) | LOC: RESCLI 09:03 | PROVIDERS: ATTEND Internal Medicine | DX: R55 Syncope and collapse (principal); I10 Essential (primary) hypertension; E55.9 Vitamin D deficiency, unspecified; Z88.0 Allergy status to penicillin ==

== ENCOUNTER → 2025-05-29 | Outpatient (CLI) | payer OTHER | END | disposition home or self-care (01) | LOC: CARD 08:30 | PROVIDERS: ATTEND Internal Medicine | DX: R55 Syncope and collapse (principal) ==